=== PATIENT | male | born 1985 | race Caucasian/White ===

== ENCOUNTER 2016-10-04 09:36 | Emergency (ER) | payer OTHER ==
[~2016-10-04] VITALS: Ht 180.3 cm; Wt 77.3 kg
[2016-10-04 09:39] VITALS: BP 114/70; PULSE 74; RESP 16; O2SAT 100
[2016-10-04] MEDS ORDERED: 0.9% Sodium Chloride Inhalation Solution ONE (09:41)
[2016-10-04] MEDS ORDERED: Fluorescein 0.6 mg Ophthalmic Strip ONE (09:41)
[2016-10-04] MEDS ORDERED: Tetracaine 0.5% 4 mL Ophthalmic Solution ONE (09:42)
--- NOTE | 2016-10-04 09:46 | ED.REPORT ---
HPI-Eye Problem Date of Service October 04, 2016 ED Provider: Melecio Oliveira MD The patient is a 30 year old male who presents to the ED c/o left eye pain after getting his eye scratched by a stick in the [place] this morning at 0200. He is unable to open his left eye. Nursing Notes Stated Complaint: EYE IRRITATION Chief Complaint: Eye Nursing Notes Reviewed: Yes Allergies: Coded Allergies: Penicillins (Verified Allergy, Unknown, 10/04/16) Sulfa (Sulfonamide Antibiotics) (Verified Allergy, Unknown, 10/04/16) Scheduled Polymyxin B Sulf/Trimethoprim (Polytrim Eye Drops) 10 Ml Drops 10 ML LEFT_EYE QID General Time Seen by MD: 09:43 Chief Complaint Other (left eye pain) Hx Obtained From: Patient Arrived By: Walk-in Sudden in Onset?: Yes Onset Occurred: 5 - 8 hours ago Symptom Duration: Since onset Progression Since Onset: Constant Caused by: Poked in eye... (Stick) Location: : Eye left Quality: Painful Severity: Current: Mild Recent Healthcare: No recent doctor visit, No recent hospitalization Similar Sx Previous: No Past Medical History Past Medical History denies Past Surgical History denies Smoking History Unknown if Ever Smoker Ambulatory Status Independent Review of Systems Eyes: Reports: Discharge left, Eye pain left, Redness left, Denies: Blurred left, Blurred right, Discharge right, Eye pain right, Redness right, Visual loss left, Visual loss right Neurologic: Denies: Headache Complete sys rev & neg: except as marked. Physical Exam Initial Vital Signs Vital Signs (First) Date Time Temp Pulse Resp B/P Pulse Ox O2 Delivery O2 Flow Rate FiO2 10/04/16 09:39 35.9 74 16 114/70 100 Room Air Initial VS: Reviewed General / Const: Well-developed, Well-nourished ENT: Mucous membranes moist Neck: Supple, Non-tender Respiratory: Breath sounds normal, Clear to auscultation Cardiovascular: Regular rate & rhythm, Heart sounds normal Abdomen / GI: Soft, Non-tender, No guarding, No rebound Extremities: Vascular intact, Neuro intact Skin: Warm, Dry Neurologic: Alert, Oriented Head / Eyes: Normocephalic no open globe injury diffuse erythema no foreign body visualized corneal abrasion Re-Eval/Medical Decision Med Decision/Clinical Course Left corneal abrasion status post being hit in the eye with a stick while hiking [place] 2 AM. No blurry vision. Does have left eye pain. There is no evidence of open globe injury. Does have corneal abrasion on fluorescein. We will treat for corneal abrasion with topical and buttocks and plan to follow up with eye doctor one to 2 days if symptoms do not improve for immediately if any worsening blurry vision, pain, any other new or worsening symptoms. We gave him the phone number for the eye doctor. Re-Evaluation/Progress : Time of Eval: 10:00 Re-Evaluation/Progress Note: Eye exam performed. No foreign body found. Discussed diagnosis of corneal abrasion and plan for follow up with opthalmologist tomorrow. F/U and RTER warnings given. Pt understands and agrees with plan. All questions addressed. Counseled Regarding: Diagnosis, Lab results, Need for follow-up, When/why to return to ED Discharge & Departure Primary Impression: Corneal abrasion Encounter type: initial encounter Laterality: left Qualified Code: S05.02XA - Injury of conjunctiva and corneal abrasion without foreign body, left eye, initial encounter Disposition: Home Discharge Condition All VS Reviewed: Yes Condition: Stable Patient Instructions: Corneal Abrasion (ED) Additional Instructions: Thank you for entrusting us with your care today. I am sending you home with a prescription for some antibiotics. If the pain gets worse or you have blurred or decreased vision follow up with the epidemiology investigator tomorrow, Dr. Alexandrea Black. Return to the Emergency Department for any new or worsening symptoms. I hope you feel better soon! Referrals: Alexandrea Black MD [facility] EDSupervising Provider for [facility]: Alexandrea Black MD Attestation Portion of this note were transcribed by Leana Whitlock. I, Dr. Oliveira, personally performed the history, physical exam, and medical decision-making: I reviewed and confirmed the accuracy for the information in the transcribed note. Signed by: ignacia Burns, 10/04/16 1200 copies to: Alexandrea Black MD; [facility] Melecio Oliveira MD October 04, 2016 09:46 Leana Whitlock October 04, 2016 10:09
[2016-10-04] MEDS ORDERED: POLY10DR21 LEFT_EYE (10:12)
== END 2016-10-04 10:13 | disposition home or self-care (01) ==
LOC: SED 09:36
DX: S05.02XA Injury of conjunctiva and corneal abrasion without foreign body, left eye, initial encounter (principal); W22.8XXA Striking against or struck by other objects, initial encounter; Y93.9 Activity, unspecified; Y92.89 Other specified places as the place of occurrence of the external cause; Y99.9 Unspecified external cause status; Z88.0 Allergy status to penicillin; Z88.2 Allergy status to sulfonamides